=== PATIENT | female | born 1990 | race Caucasian/White ===

== ENCOUNTER 2018-04-29 08:38 | Day surgery (SDC) | payer OTHER, SELFPAY ==
[2018-04-28 12:44] VITALS: BMI 25.8
[2018-04-29] VITALS (7 sets, daily range): BP systolic 91–114; BP diastolic 53–77; PULSE 18–88; RESP 9–18; TEMP 35.8–36.6; O2SAT 98–100; BMI 25.8
--- NOTE | 2018-04-29 | PATH_ITS ---
[facility] Accession Number: [id number] . 01 Material submitted: . RIGHT 5TH FINGER . 01 Clinical history: . FOREIGN BODY . 02 Diagnosis: Right Fifth Finger, Biopsy: Acral skin with subcutaneous necrotizing granuloma. Please see comment. No evidence of neoplasm. MRV/05/04/2018 . 02 Comment: Special stains were negative for myobacteria, fungus, or parasites. There is no evidence of foreign material under polarized light. The differential diagnosis includes infection, foreign body reaction, rheumatoid nodule, necrobiosis lipoidica, or sarcoidosis. . . . 02 Electronically signed: . Ibeth Guzman MD, Pathologist NPI- [id number] . 01 Gross description: . Received in formalin, labeled foreign body right fifth finger, is an unoriented piece of garibay-white skin with underlying tissue (0.7 x 0.6 x 0.3 cm) containing a focally eroded area (0.2 x 0.1 cm). The resection margin is inked black. Trisected and entirely submitted in cassette A1. ([id number]) /MRV . 02 Microscopic: . Special stains were performed to evaluate for infectious organisms. The control stains showed appropriate reactivity. . RESULTS: AFB: Negative. GMS: Negative. PAS: Negative. . INTERPRETATION: No evidence of myobacteria, fungal, or parasitic organisms, respectively. . 02 Pathologist provided ICD-10: L92.9 . 02 CPT . 901617, 214383, 565567, 126516 Performed at: 01 [facility] [address] [place] [address] [address] [facility], [place], [place] [id number] MD Javier Mccullough MD Phone: [phone] Performed at: 02 [facility] [place] [address] [place] [id number] MD Yang Perry MD Phone: [phone]
[2018-04-29] MEDS: LACTATED RINGERS 1,000 ML 42 ML IV (09:10)
--- NOTE | 2018-04-29 10:09 | PM.PREOP ---
Pre-operative Note Interval Note Pre-op Check: Yes History & Physical Reviewed by Physician and Yes Exam Performed Changes: No
[2018-04-29] MEDS: CEFAZOLIN 2 GM/100 ML FROZ.PIGGY IV (10:16)
--- NOTE | 2018-04-29 10:40 | PM.PROC.1 ---
Procedures Date/Time Date of procedure: 04/29/18 Time of procedure: 10:05 General Procedure description: Ultrasound guided peripheral nerve block (ulnar) on right side for post-op pain control after foreign body removal from right 5th digit of hand. Requested by Dr. Almendarez, orthopedic surgeon. Discussed risks and benefits of procedure with patient. ASA monitors and O2 via nasal cannula were applied. Patient recieved 2mg Versed and 50 mcg fentanyl for procedural sedation. Right forearm was prepped with chlorhexidine and allowed to fully dry. Mask, sterile gloves and supplies were used for sterile procedure. Under ultrasound, the ulnar nerve was located deep and medial to the ulnar artery and traces to the level of the mid-proximal forarm. 2% lidocaine was injected as intradermal skin wheal. Using a 21ga Pajunk 50mm needle under US guidance was directed near the ulnar nerve. After negative aspiration, 20ml of 0.5% ropivicaine and 10mg dexamethasone were injected without parasthesias. After the procedure, was reported a tingling sensation on the 5th digit and medial 4th digit. Interosseus muscle function was reduces to 3/5 strength. Procedure was well tolerated. (Heading on image indicated Interscalene. This is innaccurate. This is a ultrasound photo of the right mid-proximal forearm looking at the ulnar artery, nerve and surrounding muscle bodies.)
--- NOTE | 2018-04-29 10:45 | SUR.OPER ---
Supine on padded OR bed, head on pillow, left arm secured on padded arm board at <90 degrees abduction,right arm draped free on hand table , legs uncrossed, safety belt at thigh, tape over blanket over lower legs.
--- NOTE | 2018-04-29 11:37 | P.OP_ITS ---
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 Injury occurred approximately 3 months ago in [place], when she sustained an injury to her right hand with multiple sea urchin radha. She had an immediate inflammatory response, but the swelling and pain subsided several days later. She was able to self extract several of the sea urchin spines herself. She had a relatively quiescent period of approximately 2 months, and recently developed swelling along the ulnar border of her right small finger just distal to the MCP joint. The swelling is largely nontender, with no active drainage. She does endorse approximately 1.5 weeks ago, expressing a small amount of pus from the central part of the lesion. Radiographs obtained demonstrated soft tissue swelling with a small areas of calcification corresponding with the soft tissue swelling, likely representing retained piece of the sea urchin spine. 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 There is also a possibility, due to the delayed presentation, that this represents an infection, possible with atypical mycobaterium (e.g. marinum) Based on our discussion the patient elected to proceed with operative excision of the foreign body. Risks to include damage to nerves, blood vessels and surrounding structures, infection, need for further procedures, need for a joint exploration, stiffness, blood clots, stroke, heart attack and were discussed with the patient. All questions were answered and she desired to proceed with surgery. A preoperative consent was signed in clinic, and verified on the morning of surgery. Surgeon: Tommie Almendarez Click Yes if Unassisted: Yes Anesthesia Type: General and Peripheral nerve block Operative Notes Findings: An approximately 1.5 cm x 1 cm ellipse of the skin and underlying abnormal tissue was excised. This did not appear to track down to the MCP joint. The specimen was divided and sent for pathology and microbiology: to include aerobic, anaerobic, acid-fast ( specifically mycobacterium marinum), and fungal cultures. Closure Type: primary Specimen(s): other ( Right small finger foreign body and associated granuloma, sent for permanent pathology and microbiology.) Implants & Drains: None Applied: other ( plaster ulnar gutter splint) Estimated Blood Loss (mL): 25 Blood products transfused: none Tourniquet time (min): 26 Procedure in detail: The patient was met in the preoperative holding area and her identity was confirmed by verification of name and date of . The written informed consent was verified for the correct patient procedure and extremity to include laterality. I initialed the surgical site. The patient then underwent regional anesthesia for the right upper extremity (ulnar nerve), and was then transported to the operating room and transferred to the operating table. Once general anesthesia was induced, a non-sterile tourniquet was placed on the right brachium. The right upper extremity was then prepped and draped in usual sterile fashion. Following this a surgical time-out was conducted verifying patient identity, procedure, laterality, administration of preoperative antibiotics consisting of 2 g IV cefazolin and any other concerns. Satisfied this been accomplished, the right upper extremity was then exsanguinated using an Esmarch bandage and the tourniquet was inflated to 250 mm of mercury. A midlateral approach to the proximal phalanx of the small finger, with an ellipse around the soft tissue mass, was drawn with surgical marker, and then sharply approach to the level of subcutaneous tissue. Using a combination of sharp and blunt dissection the mass was circumferentially dissected, and freed from the underlying tissue. Care was taken not to injure the dorsal sensory nerve that was noted to be crossing the proximal dorsal side of the incision. The volar ulnar neurovascular bundle was maintained within the volar soft tissue flap. Any abnormal looking tissue was removed with a combination of scapel and fine rongeurs. The base of the wound was then probed to assess proximity to the phalanx as well as the metacarpophalangeal joint. The granulomatous tissue did not appear to overlie the joint capsule, and therefore decision was made not to explore and irrigate the joint. Once satisfied that all tissue of concern had been removed, the wound was irrigated, the tourniquet was let down and compression was held on the incision for approximately 3 min. Upon release of pressure no pulsatile bleeding was noted with good color return to the small finger. Appropriate bleeding was noted from the skin edges. A buried 3-0 Vicryl was used to reapproximate the edges of the ellipse, with good tissue approximation. The wound was closed using 4-0 nylon in interrupted horizontal mattress suture fashion. The wound was dressed with Xeroform, 4 x 4 gauze, and a plaster ulnar gutter splint was applied. The drapes were removed and anesthesia was reversed and the patient was awakened and transferred to the hospital bed. The patient was then transported from the operating room to the recovery room, in stable condition. The patient tolerated the procedure well, there were no complications. Postoperatively the patient will maintain the surgical dressing and splint until her follow-up visit in approximately 1 week. -She should elevate the arm as much as possible. -Apply ice or cold packs over the surgical site. -Range of motion as tolerated somethumb, index and long fingers. Complications: none Condition: stable Disposition: same day surgery Plan for aftercare: Discharge home with appropriate follow-up.
== END 2018-04-29 13:11 | disposition home or self-care (01) ==
PROVIDERS: Visit Provider Orthopaedic Surgery
PROC: (CPT 64450; principal; 2018-04-29 09:45)
DX: M60.241 Foreign body granuloma of soft tissue, not elsewhere classified, right hand (principal); Z18.31 Retained animal quills or spines
CPT/HCPCS: 64450; 10120; 87070; 87075; 87102; 87116; 87205; 88305; 88312; J0690; J1100; J2250; J2405; J3010